=== PATIENT | female | born 1985 | race Two or more races ===

== ENCOUNTER 2017-05-03 21:47 | Emergency (ER) | payer MEDICAID, OTHER ==
[~2017-05-03] VITALS: Ht 152.4 cm; Wt 56.7 kg
[~2017-05-03 21:47] MED LIST: IBUPROFEN600 MG ORAL; NKM; NORCO 5-325 TA1 EACH ORAL; PERCOCET 5-3251 EACH ORAL; TRAMADOL HCL50 MG ORAL; ZOFRAN ODT4 MG ORAL; ZOFRAN4 MG ORAL
[2017-05-03] MEDS ORDERED: PREDNISONE20 MG ORAL (22:33)
[2017-05-03] MEDS ORDERED: RANITIDINE HCL150 MG ORAL (22:33)
[2017-05-03] MEDS ORDERED: DIPHENHYDRAMINE25 M1 ORAL (22:33)
[2017-05-03 22:37] VITALS: BP 133/83
[2017-05-03 22:38] VITALS: BP 148/96
--- NOTE | 2017-05-04 01:54 | Emergency Room Report ---
History of Present Illness General Chief Complaint: Allergic Reaction Source: Patient Present Illness HPI 32-year-old female presents to ED for evaluation. Patient states that she's had of rash since yesterday. Started shortly after eating a taco. Patient notes rash and itchiness since. Patient has no known food or drug allergies. Denies any throat swelling or tongue swelling. Denies any shortness of breath. Denies any fevers or chills. Denies any pain. No other aggravating relieving factors. Denies any other associated symptoms Allergies: Coded Allergies: No Known Allergies (Unverified , 04/14/15) Patient History Past Medical History: none Past Surgical History: none Pertinent Family History: none Social History: Denies: smoking, alcohol use, drug use Last Menstrual Period: March 09, 2017 Now: No Immunizations: UTD Reviewed Nursing Documentation: PMH: Agreed, PSxH: Agreed Nursing Documentation-PMH Past Medical History: No Stated History Review of Systems All Other Systems: negative except mentioned in HPI Physical Exam Vital Signs Date Time Temp Pulse Resp B/P (MAP) Pulse Ox O2 Delivery O2 Flow Rate FiO2 05/03/17 21:52 97.9 83 17 148/96 97 Room Air Sp02 EP Interpretation: reviewed, normal General Appearance: no apparent distress, alert, GCS 15, non-toxic Head: normocephalic, atraumatic Eyes: bilateral eye normal inspection, bilateral eye PERRL ENT: hearing grossly normal, normal pharynx, no angioedema, normal voice Neck: full range of motion, supple/symm/no masses Respiratory: chest non-tender, lungs clear, normal breath sounds, speaking full sentences Cardiovascular #1: regular rate, rhythm, no edema Cardiovascular #2: 2+ carotid (R), 2+ carotid (L), 2+ radial (R), 2+ radial (L) , 2+ dorsalis pedis (R), 2+ dorsalis pedis (L) Gastrointestinal: normal bowel sounds, non tender, soft, non-distended, no guarding, no rebound Rectal: deferred Genitourinary: normal inspection, no CVA tenderness Musculoskeletal: back normal, gait/station normal, normal range of motion, non- tender Neurologic: alert, oriented x3, responsive, motor strength/tone normal, sensory intact, speech normal Psychiatric: judgement/insight normal, memory normal, mood/affect normal, no suicidal/homicidal ideation Reflexes: 3+ bicep (R), 3+ bicep (L), 3+ tricep (R), 3+ tricep (L), 3+ knee (R) , 3+ knee (L) Skin: normal color, warm/dry, well hydrated, rash - diffuse urticaria noted to arms, legs, chest Lymphatic: no adenopathy Medical Decision Making Diagnostic Impression: Primary Impression: Allergic reaction Qualified Codes: T78.40XA - Allergy, unspecified, initial encounter ER Course Hospital Course 32-year-old female presents to ED with itchy rash starting shortly after eating Differential diagnoses include: allergic reaction, cellulitis, angioedema Clinical course 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 After initial history, physical exam reveals a young female in no acute distress. On exam there is evidence of diffuse urticarial rash noted to the arms legs and chest. Nonerythematous base. Patient has no stridor, no tongue swelling or throat swelling. Lungs are clear Patient took Benadryl just prior to arrival. Given Solu-Medrol and Zantac here i. I feel this is a highly complex case requiring extensive working including EKG/Rhythm strip, Xray/CT/US, Blood/urine lab work, repeat exams while in ED, and administration of strong opiates/narcotics for pain control, admission to hospital or close patient follow up. Diagnosis - allergic reaction Stable and discharged to home with prescriptions for Zantac, prednisone, Benadryl. Followup with PMD. Return to ED if symptoms recur or worsen Last Vital Signs Date Time Temp Pulse Resp B/P (MAP) Pulse Ox O2 Delivery O2 Flow Rate FiO2 05/03/17 22:38 97.9 17 148/96 97 Room Air 05/03/17 22:37 69 Status: improved Disposition: HOME, SELF-CARE Condition: Stable Scripts Ranitidine Hcl* (ZANTAC*) 150 Mg Tablet 150 MG ORAL TWICE A DAY for 5 Days, #30 TAB Prov: MI CHAO M.D. 05/03/17 Prednisone* (PREDNISONE*) 20 Mg Tablet 40 MG ORAL DAILY for 5 Days, #10 TAB Prov: MI CHAO M.D. 05/03/17 Diphenhydramine Hcl* (DIPHENHYDRAMINE HCL*) 25 Mg Capsule 25 MG ORAL Q6H Y for Itching for 5 Days, #30 CAP 0 Refills Prov: MI CHAO M.D. 05/03/17 Referrals: NON PHYSICIAN (PCP) Patient Instructions: Raegan [id number] MI CHAO M.D. May 04, 2017 01:54
== END 2017-05-03 22:38 | disposition home or self-care (01) ==
LOC: EMR 22:10
DX: T78.40XA Allergy, unspecified, initial encounter (principal); R21 Rash and other nonspecific skin eruption; X58.XXXA Exposure to other specified factors, initial encounter
CPT/HCPCS: 99284

== ENCOUNTER 2018-02-26 08:40 | Emergency (ER) | payer SELFPAY ==
[~2018-02-26] VITALS: Ht 152.4 cm; Wt 59.0 kg
[~2018-02-26 08:40] MED LIST changes: +DIPHENHYDRAMINE25 M1 ORAL; +PREDNISONE20 MG ORAL; +RANITIDINE HCL150 MG ORAL
[2018-02-26 08:54] VITALS: BP 142/100
[2018-02-26] MEDS ORDERED: Methocarbamol 750mg tab ORAL ONE (09:00)
[2018-02-26] MEDS ORDERED: Acetaminophen 500mg (ES) tab ORAL ONE (09:00)
[2018-02-26 09:18] LABS: APPEARANCE,URINE SLIGHTLY CLOUDY; BILIRUBIN, URINE NEGATIVE (NEGATIVE); GLUCOSE, URINE (UA) NEGATIVE (NEGATIVE); KETONES,URINE NEGATIVE (NEGATIVE); LEUKOCYTE ESTERASE ,URINE 3+ (NEGATIVE); NITRITE,URINE NEGATIVE (NEGATIVE); PH,URINE 5 (4.5-8.0); PROTEIN,URINE 1+ (NEGATIVE); UROBILINOGEN,URINE 1 MG/DL (0.0-1.0)
[2018-02-26 09:23] LABS: COLOR,URINE YELLOW
[2018-02-26 09:35] VITALS: BP 142/100
[2018-02-26] MEDS ORDERED: TYLENOL EXTRA500 MG ORAL (09:35)
[2018-02-26] MEDS ORDERED: LIDODERM700 M1 TOPIC (09:35)
[2018-02-26] MEDS ORDERED: ROBAXIN-750750 MG PO (09:35)
--- NOTE | 2018-02-26 09:45 | Emergency Room Report ---
History of Present Illness General Chief Complaint: Lower Back Pain or Injury Source: Patient Present Illness HPI 32-year-old female presents ED complaining of back pain. Started approximately one week ago, getting progressively worse. Pain started in her lower back and now pain has spread to the upper back. 9 out of 10, throbbing, nonradiating. Worse with bending and twisting. Denies any fall or injury. States she did some heavy lifting just prior to onset of pain. Denies dysuria or hematuria. Denies fevers or chills. Denies chest pain or shortness of breath. No other aggravating relieving factors. Denies any other associated symptoms Allergies: Coded Allergies: No Known Allergies (Unverified , 04/14/15) Patient History Past Medical History: none Past Surgical History: none Pertinent Family History: none Social History: Denies: smoking, alcohol use, drug use Last Menstrual Period: 2 months ago Now: No Immunizations: UTD Reviewed Nursing Documentation: PMH: Agreed; PSxH: Agreed Review of Systems All Other Systems: negative except mentioned in HPI Physical Exam Vital Signs Date Time Temp Pulse Resp B/P (MAP) Pulse Ox O2 Delivery O2 Flow Rate FiO2 02/26/18 08:46 98.3 70 18 142/100 98 Room Air 98.2 Sp02 EP Interpretation: reviewed, normal General Appearance: no apparent distress, alert, GCS 15, non-toxic Head: normocephalic Eyes: bilateral eye normal inspection, bilateral eye PERRL ENT: normal ENT inspection Neck: normal inspection Respiratory: chest non-tender, lungs clear, normal breath sounds, speaking full sentences Cardiovascular #1: regular rate, rhythm, no edema Gastrointestinal: normal inspection Rectal: deferred Genitourinary: no CVA tenderness, no vertebral tenderness Neurologic: other - paraspinal lumbar and thoracic tenderness Psychiatric: normal inspection Skin: normal inspection Lymphatic: normal inspection Medical Decision Making Diagnostic Impression: Primary Impression: Back strain Qualified Codes: S39.012A - Strain of muscle, fascia and tendon of lower back , initial encounter ER Course Hospital Course 32-year-old female presents ED complaining of lower and upper back pain. No evidence of trauma Differential diagnoses include: pyelonephritis, kidney stone, muscle strain, Lspine fracture Clinical course Patient placed on stretcher. After initial history, physical exam reveals female in no acute distress. There is no vertebral body tenderness. There is some possible flank pain on the right side. There is paraspinal lumbar and thoracic tenderness. I ordered UA, Tylenol, Robaxin, lidocaine patch UA negative. Pain is likely muscular. Discussed findings with patient. Patient safely discharged with close outpatient follow-up Diagnosis - back strain Stable and discharged to home with prescription for tylenol, robaxin, lidoderm patch. Followup with PMD. Return to ED if symptoms recur or worsen Labs Test 02/26/18 09:00 Urine Color Yellow Urine Appearance Slightly cloudy Urine pH 5 (4.5-8.0) Urine Specific [place] 1.025 (1.005-1.035) Urine Protein 1+ (NEGATIVE) Urine Glucose (UA) Negative (NEGATIVE) Urine Ketones Negative (NEGATIVE) Urine Blood 1+ (NEGATIVE) Urine Nitrite Negative (NEGATIVE) Urine Bilirubin Negative (NEGATIVE) Urine Urobilinogen 1 MG/DL (0.0-1.0) Urine Leukocyte Esterase 3+ (NEGATIVE) Urine RBC 0-2 /HPF (0 - 2) Urine WBC 5-10 /HPF (0 - 2) Urine Squamous Epithelial Cells Moderate /LPF (NONE/OCC) Urine Bacteria Few /HPF (NONE) Urine Mucus Few /LPF (NONE/OCC) Urine HCG, Qualitative Negative (NEGATIVE) Last Vital Signs Date Time Temp Pulse Resp B/P (MAP) Pulse Ox O2 Delivery O2 Flow Rate FiO2 02/26/18 09:35 98.2 70 18 142/100 98 Room Air 98.2 Status: improved Disposition: HOME, SELF-CARE Condition: Stable Scripts Lidocaine (Lidoderm) 1 Each Adh..patch 1 PATCH TOPIC DAILY, #7 PATCH 0 Refills Patch(es) may remain in place for up to 12 hours in any 24-hour period. Prov: Thomas Bell MD 02/26/18 Methocarbamol* (ROBAXIN-750*) 750 Mg Tablet 750 MG PO TID, #21 TAB 0 Refills Prov: Thomas Bell MD 02/26/18 Acetaminophen* (TYLENOL EXTRA STRENGTH*) 500 Mg Tablet 500 MG ORAL Q8H PRN for Prn Headache/Temp > 101, #30 TAB 0 Refills Prov: Thomas Bell MD 02/26/18 Patient Instructions: Lumbosacral Strain Thomas Bell MD Feb 26, 2018 09:45
== END 2018-02-26 09:40 | disposition home or self-care (01) ==
LOC: EMR 08:59
DX: S39.012A Strain of muscle, fascia and tendon of lower back, initial encounter (principal); X58.XXXA Exposure to other specified factors, initial encounter; Y92.9 Unspecified place or not applicable
CPT/HCPCS: 81003; 81025; 99283

== ENCOUNTER 2018-06-23 13:19 | Emergency (ER) | payer OTHER ==
[~2018-06-23] VITALS: Ht 152.4 cm; Wt 55.3 kg
[~2018-06-23 13:19] MED LIST changes: +LIDODERM700 M1 TOPIC; +ROBAXIN-750750 MG PO; +TYLENOL EXTRA500 MG ORAL
[2018-06-23] MEDS ORDERED: NKM (13:31)
[2018-06-23 13:34] VITALS: BP 118/81
--- NOTE | 2018-06-23 13:34 | NUR ---
ED Nurse Note: patient walked into ED c/o right lower back pain 8/10 radiates to lower abdominal area and N/V x 4days.
--- NOTE | 2018-06-23 13:43 | Emergency Room Report ---
History of Present Illness General Chief Complaint: Abdominal Pain Source: Patient Present Illness HPI 33-year-old female patient presents the ER complaining of right flank pain rating to her right suprapubic region for the past 4 days. Reports pain is sharp. Reports history of right ovarian cyst in that area. Denies dysuria, hematuria, vaginal discharge. Denies recent sexual activity. Denies history of GI problems. Denies history of appendicitis. Reports a few episodes of vomiting during this time. Denies recent travel. Denies hematemesis or coffee- ground emesis. Denies diarrhea. Denies taking medications for his symptoms. Denies other aggravating or relieving symptoms. Allergies: Coded Allergies: No Known Allergies (Unverified , 06/23/18) Patient History Past Medical History: see triage record Last Menstrual Period: Apr 2018 Now: No Reviewed Nursing Documentation: PMH: Agreed; PSxH: Agreed Nursing Documentation-PMH Past Medical History: No History, Except For Review of Systems All Other Systems: negative except mentioned in HPI Physical Exam Vital Signs Date Time Temp Pulse Resp B/P (MAP) Pulse Ox O2 Delivery O2 Flow Rate FiO2 06/23/18 13:27 99.0 79 16 118/81 98 Room Air Sp02 EP Interpretation: reviewed, normal General Appearance: well appearing, no apparent distress, alert, GCS 15, non- toxic Head: normocephalic, atraumatic Eyes: bilateral eye normal inspection, bilateral eye PERRL ENT: hearing grossly normal, normal pharynx, no angioedema, normal voice, uvula midline, moist mucus membranes Neck: full range of motion Respiratory: lungs clear, normal breath sounds, no rhonchi, no respiratory distress, no accessory muscle use, no wheezing, speaking full sentences Cardiovascular #1: regular rate, rhythm, no edema Gastrointestinal: non tender, soft, no mass, non-distended, no guarding, no rebound, other - negative Rovsing, negative obturator Genitourinary: CVA tenderness (R), other - No left CVA tenderness Musculoskeletal: back normal, digits/nails normal, gait/station normal, normal range of motion, non-tender Neurologic: alert, oriented x3, responsive, motor strength/tone normal, sensory intact Psychiatric: mood/affect normal Medical Decision Making PA Attestation Dr. Wilson is my supervising Physician whom patient management has been discussed with. Diagnostic Impression: Primary Impression: Urinary tract infection Additional Impression: Abdominal pain ER Course Pt. presents to the ED c/o abdominal pain and vomiting. Ddx considered but are not limited to UTI, cholelithiasis, cholecystitis, pancreatitis, hydronephrosis, nephrolithiasis, torsion. Negative Rovsing, negative obturator, no right lower quadrant tenderness, low suspicion for appendicitis. Does not require CT abdomen at this time. Begin abdominal pain workup. Provided patient with pain medication. Vital signs: are WNL, pt. is afebrile ORDERS: CBC, CMP, Lipase, UA, US abdomen, Zofran, and medication. ER COURSE: CBC and CMP unremarkable, no elevation in WBCs of LFTs Lipase WNL UA shows elevated WBCs and leukocyte esterase, will treat patient for UTI. Due to flank pain, possible pyelonephritis, will treat with Bactrim. Patient is afebrile, able to tolerate p.o. fluids, does not have an elevated white count, does not require hospitalization at this time. Okay for outpatient treatment. Urine negative Discuss results with patient Abdominal US shows no signs of appendicitis, no hydronephrosis, no kidney stones , per optical laboratory technician Patient reports relief of pain symptoms improved while in the ER. Able to tolerate PO fluids while in the ER. ER precautions given. DISCHARGE: Rx provided for Bactrim Rx provided for Tylenol At this time pt. is stable for d/c to home. Patient resting comfortably, in no acute distress, nontoxic appearing, talking without difficulty. Rx provided to patient. Patient to take medications as instructed Will provide with patient care instructions and any necessary prescriptions. Care plan and follow-up instructions provided. Patient instructed to follow-up with primary care provider in 3 - 5 days. Patient questions asked and answered. Patient reports understanding and agreement to treatment plan. ER precautions given. Patient instructed to return to ER immediately for any new or worsening of symptoms including but not limited to increasing SOB, persistent fever, worsening of pain symptoms, intractable vomiting, blood in stool, urine, and/or emesis. - Please note that this Emergency Department Report was dictated using [email or web address] [email or web address] technology software, occasionally this can lead to erroneous entry secondary to interpretation by the dictation equipment. Labs Test 06/23/18 13:15 06/23/18 13:34 White Blood Count 9.3 K/UL (4.8-10.8) Red Blood Count 4.99 M/UL (4.20-5.40) Hemoglobin 14.5 G/DL (12.0-16.0) Hematocrit 42.6 % (37.0-47.0) Mean Corpuscular Volume 85 FL (80-99) Mean Corpuscular Hemoglobin 29.1 PG (27.0-31.0) Mean Corpuscular Hemoglobin Concent 34.1 G/DL (32.0-36.0) Red Cell Distribution Width 11.6 % (11.6-14.8) Platelet Count 297 K/UL (150-450) Mean Platelet Volume 7.1 FL (6.5-10.1) Neutrophils (%) (Auto) 73.0 % (45.0-75.0) Lymphocytes (%) (Auto) 19.9 % (20.0-45.0) Monocytes (%) (Auto) 5.6 % (1.0-10.0) Eosinophils (%) (Auto) 0.9 % (0.0-3.0) Basophils (%) (Auto) 0.7 % (0.0-2.0) Sodium Level 137 MMOL/L (136-145) Potassium Level 4.3 MMOL/L (3.5-5.1) Chloride Level 105 MMOL/L (98-107) Carbon Dioxide Level 27 MMOL/L (21-32) Anion Gap 5 mmol/L (5-15) Blood Urea Nitrogen 10 mg/dL (7-18) Creatinine 0.6 MG/DL (0.55-1.30) Estimat Glomerular Filtration Rate > 60 mL/min (>60) Glucose Level 95 MG/DL (74-106) Calcium Level 8.9 MG/DL (8.5-10.1) Total Bilirubin 0.7 MG/DL (0.2-1.0) Aspartate Amino Transf (AST/SGOT) 15 U/L (15-37) Alanine Aminotransferase (ALT/SGPT) 20 U/L (12-78) Alkaline Phosphatase 81 U/L (46-116) Total Protein 7.3 G/DL (6.4-8.2) Albumin 3.9 G/DL (3.4-5.0) Globulin 3.4 g/dL Albumin/Globulin Ratio 1.1 (1.0-2.7) Lipase 107 U/L (73-393) Urine Color Yellow Urine Appearance Cloudy Urine pH 7 (4.5-8.0) Urine Specific [place] 1.015 (1.005-1.035) Urine Protein Negative (NEGATIVE) Urine Glucose (UA) Negative (NEGATIVE) Urine Ketones Negative (NEGATIVE) Urine Blood 1+ (NEGATIVE) Urine Nitrite Negative (NEGATIVE) Urine Bilirubin Negative (NEGATIVE) Urine Urobilinogen 4 MG/DL (0.0-1.0) Urine Leukocyte Esterase 3+ (NEGATIVE) Urine RBC 2-4 /HPF (0 - 2) Urine WBC 5-10 /HPF (0 - 2) Urine Squamous Epithelial Cells Moderate /LPF (NONE/OCC) Urine Bacteria Few /HPF (NONE) Urine HCG, Qualitative Negative (NEGATIVE) CT/MRI/US Diagnostic Results CT/MRI/US Diagnostic Results : Imaging Test Ordered: Abomdinal US Impression Per optical laboratory technician, no signs of appendicitis, no hydronephrosis, no kidney stones Last Vital Signs Date Time Temp Pulse Resp B/P (MAP) Pulse Ox O2 Delivery O2 Flow Rate FiO2 06/23/18 13:34 99.0 79 16 118/81 98 Room Air Status: improved Disposition: HOME, SELF-CARE Condition: Stable Scripts Acetaminophen* (TYLENOL EXTRA STRENGTH*) 500 Mg Tablet 500 MG ORAL Q8H PRN for Prn Headache/Temp > 101, #30 TAB 0 Refills Prov: Deandre Ewing 06/23/18 Trimethoprim/Sulfamethoxazole 160/800* (BACTRIM DS TABLET*) 1 Each Tablet 1 TAB ORAL TWICE A DAY for 7 Days, #14 TAB Prov: Deandre Ewing 06/23/18 Patient Instructions: Abdominal Pain, Adult, Urinary Tract Infection, Easy-to- Read Additional Instructions: Followup with primary care provider and followup with and./or OBGYN. Discussed need for further imaging with primary care provider. Drink plenty of fluids. Take medications as directed. Patient questions asked and answered. ER precautions given, patient instructed to return to ER immediately for any new or worsening of symptoms. Deandre Ewing Jun 23, 2018 13:43
[2018-06-23] MEDS ORDERED: Ketorolac 30mg Inj IV ONE (13:45)
[2018-06-23 13:52] LABS: APPEARANCE,URINE CLOUDY; BILIRUBIN, URINE NEGATIVE (NEGATIVE); GLUCOSE, URINE (UA) NEGATIVE (NEGATIVE); KETONES,URINE NEGATIVE (NEGATIVE); LEUKOCYTE ESTERASE ,URINE 3+ (NEGATIVE); NITRITE,URINE NEGATIVE (NEGATIVE); PH,URINE 7 (4.5-8.0); PROTEIN,URINE NEGATIVE (NEGATIVE); UROBILINOGEN,URINE 4 MG/DL (0.0-1.0)
[2018-06-23 14:02] LABS: BASOPHILS % (AUTO) 0.7 % (0.0-2.0); EOSINOPHILS % (AUTO) 0.9 % (0.0-3.0); HEMATOCRIT 42.6 % (37.0-47.0); HEMOGLOBIN 14.5 G/DL (12.0-16.0); LYMPHOCYTES % (AUTO) 19.9 % (20.0-45.0); MEAN CORPUSCULAR VOLUME 85 FL (80-99); MONOCYTES % (AUTO) 5.6 % (1.0-10.0); PLATELET COUNT 297 K/UL (150-450); RED BLOOD COUNT 4.99 M/UL (4.20-5.40); RED CELL DISTRIBUTION WIDTH 11.6 % (11.6-14.8); WHITE BLOOD COUNT 9.3 K/UL (4.8-10.8)
[2018-06-23 14:13] LABS: COLOR,URINE YELLOW
[2018-06-23 14:14] LABS: ANION GAP 5 mmol/L (5-15); BLOOD UREA NITROGEN 10 mg/dL (7-18); CALCIUM 8.9 MG/DL (8.5-10.1); CARBON DIOXIDE 27 MMOL/L (21-32); CHLORIDE 105 MMOL/L (98-107); CREATININE 0.6 MG/DL (0.55-1.30); POTASSIUM 4.3 MMOL/L (3.5-5.1); SODIUM 137 MMOL/L (136-145)
[2018-06-23 14:19] LABS: ALANINE AMINOTRANSFERASE 20 U/L (12-78); ALBUMIN 3.9 G/DL (3.4-5.0); ALBUMIN/GLOBULIN RATIO 1.1 (1.0-2.7); ALKALINE PHOSPHATASE 81 U/L (46-116); ASPARTATE AMINO TRANSFERASE 15 U/L (15-37); BILIRUBIN,TOTAL 0.7 MG/DL (0.2-1.0)
[2018-06-23] MEDS ORDERED: TYLENOL EXTRA500 MG ORAL (14:57)
[2018-06-23] MEDS ORDERED: BACTRIM DS TAB1 EAC1 ORAL (14:57)
[2018-06-23 15:06] VITALS: BP 118/81
--- NOTE | 2018-06-23 15:07 | NUR ---
ED Nurse Note: Patient is being discharged cleared by ERMD. discharge paper/instruction given to the patient, patient verbalized understanding. patient a/o x4, ambulated out of Ed with steady gait, with all belongings. ID band removed.
--- NOTE | 2018-06-23 16:40 | Diagnostic Imaging Report ---
Indication: Abdominal pain Technique: Mckay-scale and duplex images of the upper abdomen were obtained Comparison: Reference made to abdomen pelvis CT 06/07/2016 Findings: Exam is limited due to patient body habitus Gallbladder is unremarkable, without stones, wall thickening, nor pericholecystic fluid. Sonographic Johnson's sign is negative. Common bile duct measures mm in diameter. No intrahepatic biliary ductal dilatation. Liver demonstrates normal echogenicity, no focal abnormality. Portal vein and hepatic veins are patent. The pancreas is poorly visualized. Spleen is unremarkable. Left kidney measures 10.9 cm in length. Right kidney measures 10.5 cm length. Both kidneys demonstrate normal echogenicity. There is no hydronephrosis. No focal abnormality . Non-aneurysmal abdominal aorta . Impression: Essentially unremarkable exam. Negative for gallstones or dilated ducts or other significant abnormality Note suboptimal visualization of the pancreas
== END 2018-06-23 15:07 | disposition home or self-care (01) ==
LOC: EMR 13:40
DX: N39.0 Urinary tract infection, site not specified (principal); R11.10 Vomiting, unspecified
CPT/HCPCS: 36415; 76700; 80053; 81003; 81025; 83690; 85025; 96361; 96374; 99284; J1885

== ENCOUNTER 2020-08-11 09:24 | Emergency (ER) | payer MEDICAID, OTHER ==
[~2020-08-11] VITALS: Ht 152.4 cm; Wt 49.9 kg
[~2020-08-11 09:24] MED LIST changes: +BACTRIM DS TAB1 EAC1 ORAL
[2020-08-11] MEDS ORDERED: ROBAXIN-750750 MG PO (09:49)
[2020-08-11] MEDS ORDERED: IBUPROFEN600 M1 ORAL (09:49)
--- NOTE | 2020-08-11 09:50 | NUR ---
pt states low back pain after lifting heavy box. pt states unable to move in certain positions. pt states full feeling in legs/toes, denies numbness/tingling. pt denies trauma to area. pt A&OX4, ambulatory with slow gait. VSS. MD & RN at bedside to evaluate pt. pt verbalizes plan to followup with external resources and verbalizes medication education.
[2020-08-11 09:55] VITALS: BP 131/70
--- NOTE | 2020-08-11 09:55 | Emergency Room Report ---
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 She had increased pain to the lower back She went back to lean forward again she felt increased discomfort there was some also radiation to the right buttock and lateral upper leg area denies any Loss of control of bowel or urination denies any saddle paresthesia On further discussion patient reports that she has had problems with her tailbone region previously She had MRI about 3 years ago and had therapy and there was also discussion r egarding possible surgery Denies any other fall acutely denies any chest pain or shortness of breath Allergies: Coded Allergies: No Known Allergies (Unverified , 06/23/18) COVID-19 Screening Contact w/high risk pt: No Experienced COVID-19 symptoms?: No 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 COVID-19 Screening: Negative COVID-19 COVID-19 Testing Source: 2 weeks ago Patient History Past Medical History: see triage record Now: No Reviewed Nursing Documentation: PMH: Agreed; PSxH: Agreed Nursing Documentation-PMH Past Medical History: No Stated History Review of Systems All Other Systems: negative except mentioned in HPI Physical Exam Vital Signs Date Time Temp Pulse Resp B/P (MAP) Pulse Ox O2 Delivery O2 Flow Rate FiO2 08/11/20 09:40 98.2 75 16 131/70 (90) 95 Room Air Sp02 EP Interpretation: reviewed, normal General Appearance: well appearing, no apparent distress Head: normocephalic, atraumatic Eyes: bilateral eye PERRL, bilateral eye EOMI ENT: hearing grossly normal, normal pharynx, TMs + canals normal, uvula midline Neck: full range of motion, supple, no meningismus, no bony tend Respiratory: lungs clear, normal breath sounds, no rhonchi, no respiratory distress, no retraction, no accessory muscle use Cardiovascular #1: normal peripheral pulses, regular rate, rhythm, no edema, no gallop, no JVD, no murmur Gastrointestinal: normal bowel sounds, non tender, soft, no mass, no organomegaly, non-distended, no guarding, no hernia, no pulsatile mass, no rebound Genitourinary: no CVA tenderness Musculoskeletal: other - Discomfort is palpable paraspinal L3-L4 region some increased muscle tone as well otherwise no midline step-offs no erythema or fluctuance patient is ambulatory does have discomfort with trying to sit upright and with movement Neurologic: oriented x3, sensory intact, responsive, grossly normal - Patient is otherwise grossly neurologically intact is able to ambulate bears weight does have discomfort with any movement such as sitting up or turning Psychiatric: mood/affect normal Skin: no rash Lymphatic: normal inspection Medical Decision Making Diagnostic Impression: Primary Impression: Back strain ER Course Patient's exam and findings have multiple differentials including but not limited to neurological, neurosurgical, infectious process Patient's clinical history and exam otherwise is consistent with low back strain/sprain Patient does report previous tailbone pathology which she was getting treated for Given the lack of any obvious trauma or fall I did not feel imaging studies were emergently required patient is neurologically intact we will have initial conservative outpatient trial And requires close follow-up with possible MRI and specialty referral by primary physician Last Vital Signs Date Time Temp Pulse Resp B/P (MAP) Pulse Ox O2 Delivery O2 Flow Rate FiO2 08/11/20 09:40 98.2 75 16 131/70 (90) 95 Room Air Status: unchanged Disposition: HOME, SELF-CARE Condition: Stable Scripts Methocarbamol* (ROBAXIN-750*) 750 Mg Tablet 750 MG PO TID, #21 TAB 0 Refills Prov: Nicky Berumen DO 08/11/20 Ibuprofen* (MOTRIN*) 600 Mg Tablet 600 MG ORAL Q6H PRN for FOR PAIN, #20 TAB 0 Refills Prov: Nicky Berumen DO 08/11/20 Referrals: [facility] Sp[facility] Departure Forms: Return to Work Return to Work in (Days): 2 Return to Work Date: Aug 14, 2020 Patient Instructions: Sciatica, Back Pain, Adult Additional Instructions: Patient is provided with the discharge instructions notified to follow up with primary doctor in the next 2-3 days otherwise return to the er with any worsening symptoms. Please note that this report is being documented using [employer] technology. This can lead to erroneous entry secondary to incorrect interpretation by the dictating instrument. Nicky Berumen DO Aug 11, 2020 09:55
--- NOTE | 2020-08-11 09:56 | NUR ---
ED Nurse Note: Pt cleared by health care Provider for discharge. DC instructions/prescription was given and explained to pt and verbalized understanding of teachings. All medical deviecs such as ID band removed. Pt is AAO x4, ambulatory and left with all personal belongings.
== END 2020-08-11 09:57 | disposition home or self-care (01) ==
LOC: EMR 09:47
DX: S39.012A Strain of muscle, fascia and tendon of lower back, initial encounter (principal); X50.1XXA Overexertion from prolonged static or awkward postures, initial encounter; Y92.9 Unspecified place or not applicable
CPT/HCPCS: 99282